=== PATIENT | female | born 1940 | race Caucasian/White ===

== ENCOUNTER → 2020-12-20 | Outpatient (CLI) | payer MEDICARE ==
[~2020-12-20] MED LIST: ACET-1600 PO; ACYC-114 PO; AMLO-150 PO; BACI1CAP6 PO; BIOT5TAB PO; C,E,1CAP PO; CHOL10003 PO; CLOT15CR6 TP; CYAN100072 PO; DICL100G29 TP; ESTR30CR VG; GABA300C PO; LEVO75TA5 PO; LISI1TAB20 PO; LORA-439 PO; LOVA40TA2 PO; MAGN400C PO; METH-640 PO; METH1TAB21 PO; OMEP40CA42 PO; POLY17PO5 PO; POTA99TA24 PO; TRAM50TA2 PO; TURM1CAP PO; ZOLP-413 PO
[2020-12-20 12:59] LABS: ALANINE AMINOTRANSFERASE 43 U/L (12-78); ALBUMIN 4.1 g/dL (3.4-5.0); ANION GAP 7 mmol/L (5-15); CALCIUM 10.2 mg/dL (8.5-10.1); CHLORIDE 100 mmol/L (98-107); CREATININE 0.95 mg/dL (0.55-1.02)
[2020-12-20 13:01] LABS: ALKALINE PHOSPHATASE 129 U/L (45-117); BILIRUBIN,TOTAL 0.3 mg/dL (0.2-1.0); TOTAL PROTEIN 8.3 g/dL (6.4-8.2)
== END | disposition home or self-care (01) ==
LOC: STAR 11:10
PROVIDERS: ATTEND Obstetrics & Gynecology Female Pelvic Medicine and Reconstructive Surgery
DX: Z01.812 Encounter for preprocedural laboratory examination (principal); Z20.822 Contact with and (suspected) exposure to COVID-19; R10.2 Pelvic and perineal pain; N39.3 Stress incontinence (female) (male); N81.10 Cystocele, unspecified; N81.6 Rectocele
CPT/HCPCS: 36415; 80053; 93005; U0003

== ENCOUNTER 2020-12-26 13:29 | Day surgery (SDC) | payer MEDICARE ==
[~2020-12-26] VITALS: Ht 147.3 cm; Wt 65.0 kg
[~2020-12-26 13:29] MED LIST changes: +BUPIVACAINE/PF 0.25% ONE; +EPINEPHRINE 1 MG/ML, 1ML ONE; +NEOMY/POLYMYXIN B GU IRR. 1 ML ONE
[2020-12-26] MEDS ORDERED: CHLORHEXIDINE 15 ML UDC ONE (14:24)
[2020-12-26] MEDS ORDERED: CHLORHEXIDINE 15 ML UDC PO ONE (14:30)
[2020-12-26] MEDS ORDERED: LACTATED RINGERS 1,000 ML IV SCH (14:30)
[2020-12-26] MEDS ORDERED: LIDOCAINE-MPF 1%, 2ML INFIL ONE (14:30)
[2020-12-26] MEDS ORDERED: MIDAZOLAM 1 MG/ML, 2ML ONE (14:48)
[2020-12-26] MEDS ORDERED: FENTANYL PF 250 MCG/5ML ONE (14:48)
[2020-12-26] MEDS ORDERED: SUCCINYLCHOLINE 20 MG/ML, 10ML ONE (15:08)
[2020-12-26] MEDS ORDERED: ONDANSETRON 2MG/ML, 2ML ONE (15:08)
[2020-12-26] MEDS ORDERED: CEFAZOLIN 1,000 MG ONE (15:08)
[2020-12-26] MEDS ORDERED: ROCURONIUM 10 MG/ML,10ML ONE (15:08)
[2020-12-26] MEDS ORDERED: PROPOFOL 10 MG/ML, 20ML ONE (15:08)
[2020-12-26] MEDS ORDERED: DEXAMETHASONE 4 MG/ML, 1ML ONE (15:08)
[2020-12-26] MEDS ORDERED: OXYcodone 5 MG/5 ML ORAL.SOL UDC PO PRN (15:30)
[2020-12-26] MEDS ORDERED: DIAZEPAM 5 MG/ML, 2ML IV PRN ×2 (15:30)
[2020-12-26] MEDS ORDERED: KETOROLAC 30 MG/1 ML IV PRN (15:30)
[2020-12-26] MEDS ORDERED: ONDANSETRON 2MG/ML, 2ML IVPush PRN (15:30)
[2020-12-26] MEDS ORDERED: HYDROmorphone 1 MG/ML, 1ML INJ IV PRN (15:30)
[2020-12-26] MEDS ORDERED: ALBUTEROL SULFATE 2.5 MG/3 ML NPPB PRN (15:30)
[2020-12-26] MEDS ORDERED: LABETALOL 5MG/ML, 20ML IV PRN (15:30)
[2020-12-26] MEDS ORDERED: METOCLOPRAMIDE 5 MG/ML, 2ML IV PRN (15:30)
[2020-12-26] MEDS ORDERED: MEPERIDINE/PF 25MG/0.5ML IVPush PRN (15:30)
[2020-12-26] MEDS ORDERED: hydrALAzine 20 MG/ML, 1ML IV PRN (15:30)
[2020-12-26] MEDS ORDERED: PROMETHAZINE 25 MG/ML, 1ML IV PRN (15:30)
[2020-12-26] MEDS ORDERED: MIDAZOLAM 1 MG/ML, 5ML ONE (16:07)
[2020-12-26] MEDS ORDERED: FENTANYL PF 100 MCG/2ML ONE ×2 (16:15→16:17)
[2020-12-26] MEDS ORDERED: HYDROmorphone 1 MG/ML, 1ML INJ ONE (16:15)
[2020-12-26] MEDS ORDERED: OXYcodone 5 MG/5 ML ORAL.SOL UDC ONE (16:17)
[2020-12-26] MEDS: FENTANYL PF 100 MCG/2ML IV PRN ×2 (16:21→16:44)
[2020-12-26] MEDS ORDERED: METHOCARBAMOL 1,000 MG in DEXTROSE 5% 100 ML IV ONE (16:30)
[2020-12-26] MEDS ORDERED: MIDAZOLAM 1 MG/ML, 2ML IV PRN (16:30)
== END 2020-12-26 18:15 | disposition home or self-care (01) ==
LOC: OR 13:29
PROVIDERS: ATTEND Obstetrics & Gynecology Female Pelvic Medicine and Reconstructive Surgery
DX: N81.89 Other female genital prolapse (principal); N39.46 Mixed incontinence; N81.11 Cystocele, midline; N81.6 Rectocele; N81.5 Vaginal enterocele; N39.0 Urinary tract infection, site not specified; I10 Essential (primary) hypertension; G43.909 Migraine, unspecified, not intractable, without status migrainosus; M79.7 Fibromyalgia; K21.9 Gastro-esophageal reflux disease without esophagitis; Z79.890 Hormone replacement therapy; M19.91 Primary osteoarthritis, unspecified site; Z79.891 Long term (current) use of opiate analgesic; Z79.899 Other long term (current) drug therapy; Z88.2 Allergy status to sulfonamides; Z88.8 Allergy status to other drugs, medicaments and biological substances; Z90.710 Acquired absence of both cervix and uterus; Z90.79 Acquired absence of other genital organ(s); Z90.722 Acquired absence of ovaries, bilateral
CPT/HCPCS: 57265; 57282; 57288; C1771; J0171; J0330; J0690; J1100; J2250; J2405; J2704; J2800; J3010; J7120; J1170